=== PATIENT | female | born 1965 | race Caucasian/White ===

== ENCOUNTER 2016-07-30 17:28 | Emergency (ER) | payer BC ==
[~2016-07-30] VITALS: Ht 152.4 cm; Wt 100.0 kg
[~2016-07-30 17:28] MED LIST: AUD NEB; BUDE10.2 IH; ENAL5TAB PO; HYDR25TA PO; PRED10TA3 PO
[2016-07-30] MEDS ORDERED: PRED20 PO (17:39)
[2016-07-30] MEDS ORDERED: ENAL20 PO (17:39)
[2016-07-30] MEDS ORDERED: MethylPREDNISolone SOD SUCC 125 MG/2 ML VIAL IM ONE (19:30)
[2016-07-30 19:36] VITALS: BP 139/80
== END 2016-07-30 19:43 | disposition home or self-care (01) ==
LOC: EMS 17:29
DX: J45.901 Unspecified asthma with (acute) exacerbation (principal); J44.9 Chronic obstructive pulmonary disease, unspecified; I10 Essential (primary) hypertension; Z91.012 Allergy to eggs; Z91.011 Allergy to milk products; Z91.018 Allergy to other foods; Z88.6 Allergy status to analgesic agent; Z88.8 Allergy status to other drugs, medicaments and biological substances
CPT/HCPCS: 96372; 99283; J2930

== ENCOUNTER 2017-01-03 23:32 | Emergency (ER) | payer BC ==
[~2017-01-03] VITALS: Ht 154.9 cm; Wt 100.0 kg
[~2017-01-03 23:32] MED LIST changes: +ENAL20 PO; -ENAL5TAB PO; -PRED10TA3 PO; +PRED20 PO
[2017-01-04] MEDS ORDERED: ALBUTEROL SULFATE 5 MG/ML 20 ML NEB SOLN [BULK] NEB ONE ×2 (00:30→00:45)
[2017-01-04] MEDS ORDERED: LORazepam 2 MG/ML VIAL IM ONE (00:30)
[2017-01-04] MEDS ORDERED: 0.9% SODIUM CHLORIDE 5 ML NEB SOLUTION NEB ONE ×2 (00:31→00:33)
[2017-01-04 01:27] VITALS: BP 124/65
== END 2017-01-04 04:02 | disposition left against medical advice (07) ==
LOC: EMS 23:37
DX: J45.909 Unspecified asthma, uncomplicated (principal); F41.9 Anxiety disorder, unspecified; J44.9 Chronic obstructive pulmonary disease, unspecified; I10 Essential (primary) hypertension; Z88.6 Allergy status to analgesic agent; Z91.012 Allergy to eggs; Z91.011 Allergy to milk products; Z88.8 Allergy status to other drugs, medicaments and biological substances; Z91.018 Allergy to other foods
CPT/HCPCS: 94644; 96372; 99285; J2060